=== PATIENT | male | born 1970 | race African-American/Black ===

== ENCOUNTER 2020-11-27 08:41 | Emergency (ER) | payer OTHER ==
[~2020-11-27] VITALS: Ht 193 cm; Wt 95.3 kg
== END 2020-11-27 10:37 | disposition home or self-care (01) ==
LOC: ER 08:41
DX: K08.89 Other specified disorders of teeth and supporting structures (principal)

== ENCOUNTER 2021-04-17 08:34 | Outpatient (CLI) | payer OTHER | END 2021-04-17 08:35 | disposition home or self-care (01) | LOC: PPH VACUNA 08:34 | DX: Z23 Encounter for immunization (principal) ==